=== PATIENT | female | born 1950 | race Caucasian/White ===

== ENCOUNTER → 2017-09-19 | Outpatient (CLI) | payer MEDICARE ==
--- NOTE | 2017-09-19 14:17 | MM ---
Reason for exam: screening (asymptomatic). Last mammogram was performed 1 year and 2 months ago. History: Patient is postmenopausal. Family history of premenopausal breast cancer in cousin at age 50 and premenopausal breast cancer in sister at age 52. Benign excisional biopsy of the left breast, October 06, 2005. Benign excisional biopsy of the right breast, 1992. Benign excisional biopsy of the left breast, 1979. Took hormonal contraceptives for 10 years beginning at age 18. Took estrogen for 13 years beginning at age 39. Took progesterone for 13 years beginning at age 39. Physical Findings: A clinical breast exam by your physician is recommended on an annual basis and results should be correlated with mammographic findings. MG 3D Screening Mammo W/Cad Bilateral CC and MLO view(s) were taken. Prior study comparison: August 02, 2016, bilateral MG 3d screening mammo w/cad. November 11, 2014, bilateral MG screening mammo w CAD. The breast tissue is extremely dense which could obscure a lesion on mammography. Stable benign calcifications. There is no discrete abnormality. No significant changes when compared with prior studies. ASSESSMENT: Benign, BI-RAD 2 RECOMMENDATION: Routine screening mammogram of both breasts in 1 year.
== END | disposition home or self-care (01) ==
LOC: RADMAMWWP 08:55
PROVIDERS: ATTEND Family Medicine
DX: Z12.31 Encounter for screening mammogram for malignant neoplasm of breast (principal)
CPT/HCPCS: 77063; 77067

== ENCOUNTER 2018-06-23 10:30 | Emergency (ER) | payer MEDICARE ==
[2018-06-23 11:05] VITALS: TEMP 98.1
[2018-06-23] MEDS ORDERED: SODIUM CHLORIDE 0.9% 1,000 ML IV STA ×2 (11:37)
[2018-06-23] MEDS ORDERED: MORPHINE SULFATE 2 MG/ML SYRINGE IVP STA (11:37)
--- NOTE | 2018-06-23 11:40 | ED ---
Abdominal Pain HPI - General Source: patient, RN notes reviewed, old records reviewed Mode of arrival: ambulatory Limitations: no limitations <Jessica Person - Last Filed: 06/23/18 16:00> <Mook Lozano - Last Filed: 06/23/18 22:22> - General Chief Complaint: Abdominal Pain Stated Complaint: SOB, cough Time Seen by Provider: 06/23/18 11:21 - History of Present Illness Initial Comments: 68-year-old female presents emergency department today with chief complaint of right upper quadrant pain radiating towards her back. Patient states that she did have some episodes of shortness of breath. She denies any specific chest pain at this time. She reports that the pain radiates around the mid back. Patient states that she has had these symptoms for the past 2 days. She states that this time she has 0 pain. The pain is worse with taking a deep breath. She denies any nausea or vomiting. (Jessica Person) - Related Data Home Medications Medication Instructions Recorded Confirmed Cholecalciferol [Vitamin D3] 5,000 unit PO DAILY 06/23/18 06/23/18 Levothyroxine Sodium [Synthroid] 50 mcg PO DAILY 06/23/18 06/23/18 Allergies Allergy/AdvReac Type Severity Reaction Status Date / Time ANTIHISTAMINE AdvReac Unknown Uncoded 06/23/18 11:01 Review of Systems ROS Other: All systems not noted in ROS Statement are negative. <Jessica Person - Last Filed: 06/23/18 16:00> ROS Other: All systems not noted in ROS Statement are negative. <Mook Lozano - Last Filed: 06/23/18 22:22> ROS Statement: Those systems with pertinent positive or pertinent negative responses have been documented in the HPI. Past Medical History Past Medical History: GERD/Reflux, Osteoarthritis (OA) Additional Past Medical History / Comment(s): OA OF AARON THUMBS History of Any Multi-Drug Resistant Organisms: None Reported Additional Past Surgical History / Comment(s): HEMMOROIDECTOMY, BENIGN CYST REMOVED FROM BREAST Past Anesthesia/Blood Transfusion Reactions: No Reported Reaction Past Psychological History: No Psychological Hx Reported Smoking Status: Current every day smoker Past Alcohol Use History: Occasional Past Drug Use History: None Reported - Past Family History Mother Family Medical History: Cancer Additional Family Medical History / Comment(s): VULVA Sister(s) Family Medical History: Cancer Additional Family Medical History / Comment(s): BREAST Brother(s) Family Medical History: Cancer Additional Family Medical History / Comment(s): STOMACH <Jessica Person - Last Filed: 06/23/18 16:00> General Exam Limitations: no limitations General appearance: alert, in no apparent distress Head exam: Present: atraumatic, normocephalic, normal inspection Eye exam: Present: normal appearance, PERRL, EOMI. Absent: scleral icterus, conjunctival injection, periorbital swelling ENT exam: Present: normal exam Neck exam: Present: normal inspection. Absent: tenderness, meningismus, lymphadenopathy Respiratory exam: Present: normal lung sounds bilaterally. Absent: respiratory distress, wheezes, rales, rhonchi, stridor Cardiovascular Exam: Present: regular rate, normal rhythm, normal heart sounds. Absent: systolic murmur, diastolic murmur, rubs, gallop, clicks GI/Abdominal exam: Present: soft, tenderness (Tenderness Patient in the right upper quadrant.), normal bowel sounds. Absent: distended, guarding, rebound, rigid Extremities exam: Present: normal inspection, full ROM, normal capillary refill , other (Patient has normal dorsalis pedis and posterior tibial pulse. 2+. Lower extremity's are warm.). Absent: tenderness, pedal edema, joint swelling, calf tenderness Back exam: Present: normal inspection Neurological exam: Present: alert, oriented X3, CN II-XII intact Psychiatric exam: Present: normal affect, normal mood Skin exam: Present: warm, dry, intact, normal color. Absent: rash <Jessica Person - Last Filed: 06/23/18 16:00> <Mook Lozano - Last Filed: 06/23/18 22:22> - General Exam Comments Initial Comments: 68-year-old female. Alert and oriented 3. Patient appears in no acute distress. (Jessica Person) Vital Signs 06/23/18 06/23/18 06/23/18 11:01 11:22 12:30 Temperature 98.1 F Pulse Rate 64 58 L Respiratory 18 22 14 Rate Blood Pressure 140/80 135/84 O2 Sat by Pulse 97 96 Oximetry 06/23/18 06/23/18 06/23/18 14:00 15:00 15:30 Temperature Pulse Rate 63 72 60 Respiratory 16 16 14 Rate Blood Pressure 128/76 109/62 126/70 O2 Sat by Pulse 93 L 94 L 92 L Oximetry 06/23/18 06/23/18 16:00 16:30 Temperature Pulse Rate 65 71 Respiratory 16 14 Rate Blood Pressure 139/83 121/77 O2 Sat by Pulse 92 L 87 L Oximetry Medical Decision Making - Lab Data Result diagrams: 06/23/18 12:00 06/23/18 12:00 - Radiology Data Radiology results: report reviewed <Jessica Person - Last Filed: 06/23/18 16:00> - Lab Data Result diagrams: 06/23/18 12:00 06/23/18 12:00 <Mook Lozano - Last Filed: 06/23/18 22:22> - Medical Decision Making Patient is a 68-year-old female presents emergency department today with chief complaint of mid back pain and right upper quadrant pain. Patient reports no other exam is revealing symptoms, fevers chills nausea or vomiting. Initially is concerned for gallbladder-related Patient described pain. He did complete lab work, EKG and right upper quadrant ultrasound. Patient's labwork was reviewed and unremarkable. Normal hemoglobin liver enzymes coags. She is a normal troponin. When I reevaluated the Patient she stated complaining of some back pain. Not reproducible to palpation. At this time I added a d-dimer. This fluid came back markedly elevated 2.26. We proceeded with a computed tomography scan of the chest for PE. Patient was found to have a mid thoracic dissection. No evidence of PE. The son I contacted Dr. Aranda get up. She has normal pulses in lower extremities, complains of minor pain in the back at this time. Heart rate was 75 bpm, blood pressure is 130/92. Did start the Patient on Esmolol titration. Patient requests transfer to [facility]. (Jessica Person) Patient patient evaluated at approximately 1600. CT evidence of anterior aortic dissection. This is distal thoracic, type B dissection. Patient has complained of pain for 2-3 days with some mild dyspnea. Vital signs are stable , there was no concern for dissection on initial presentation his blood pressure was normal, and patient was otherwise well-appearing. This was picked up incidentally on PE CT angiogram study. This was obtained secondary to mild dyspnea and elevated d-dimer. This study is suboptimal for evaluation of the aorta however there is evidence of filling defect in the anterior aortic wall. This does correspond with the patient's pain complaint. She is started on esmolol for both heart rate and blood pressure reduction. Case is discussed with [facility] regarding transfer. ER physician discussed case with cardiothoracic surgery who does accept the patient. Accepting physician is Dr. Whiting. Patient is pain-free at the time of reevaluation, blood pressure and heart rate is improving. She has distal pulses. Lactic is 1.2 which is normal. (Mook Lozano) - Lab Data Lab Results 06/23/18 06/23/18 06/23/18 Range/Units 12:00 12:00 12:00 WBC 4.3 (3.8-10.6) k/uL RBC 4.15 (3.80-5.40) m/uL Hgb 13.0 (11.4-16.0) gm/dL Hct 39.0 (34.0-46.0) % MCV 94.1 (80.0-100.0) fL MCH 31.5 (25.0-35.0) pg MCHC 33.4 (31.0-37.0) g/dL RDW 12.8 (11.5-15.5) % Plt Count 224 (150-450) k/uL Neutrophils % 57 % Lymphocytes % 33 % Monocytes % 6 % Eosinophils % 2 % Basophils % 0 % Neutrophils # 2.4 (1.3-7.7) k/uL Lymphocytes # 1.4 (1.0-4.8) k/uL Monocytes # 0.2 (0-1.0) k/uL Eosinophils # 0.1 (0-0.7) k/uL Basophils # 0.0 (0-0.2) k/uL PT (9.0-12.0) sec INR (<1.2) APTT (22.0-30.0) sec D-Dimer (<0.60) mg/L FEU Sodium 142 (137-145) mmol/L Potassium 4.3 (3.5-5.1) mmol/L Chloride 108 H (98-107) mmol/L Carbon Dioxide 26 (22-30) mmol/L Anion Gap 8 mmol/L BUN 19 H (7-17) mg/dL Creatinine 0.55 (0.52-1.04) mg/dL Est GFR (CKD-EPI)AfAm >90 (>60 ml/min/1.73 sqM) Est GFR (CKD-EPI)NonAf >90 (>60 ml/min/1.73 sqM) Glucose 83 (74-99) mg/dL Plasma Lactic Acid Eusebio (0.7-2.0) mmol/L Calcium 9.7 (8.4-10.2) mg/dL Total Bilirubin 0.4 (0.2-1.3) mg/dL AST 17 (14-36) U/L ALT 23 (9-52) U/L Alkaline Phosphatase 61 (38-126) U/L Troponin I (0.000-0.034) ng/mL Total Protein 6.4 (6.3-8.2) g/dL Albumin 3.8 (3.5-5.0) g/dL Amylase 46 (30-110) U/L Lipase 77 (23-300) U/L Urine Color Yellow Urine Appearance Clear (Clear) Urine pH 6.0 (5.0-8.0) Ur Specific [place] 1.012 (1.001-1.035) Urine Protein Negative (Negative) Urine Glucose (UA) Negative (Negative) Urine Ketones Negative (Negative) Urine Blood Negative (Negative) Urine Nitrite Negative (Negative) Urine Bilirubin Negative (Negative) Urine Urobilinogen <2.0 (<2.0) mg/dL Ur Leukocyte Esterase Moderate H (Negative) Urine RBC 1 (0-5) /hpf Urine WBC 6 H (0-5) /hpf Ur Squamous Epith Cells <1 (0-4) /hpf Urine Mucus Rare H (None) /hpf 06/23/18 06/23/18 06/23/18 Range/Units 12:00 12:00 12:00 WBC (3.8-10.6) k/uL RBC (3.80-5.40) m/uL Hgb (11.4-16.0) gm/dL Hct (34.0-46.0) % MCV (80.0-100.0) fL MCH (25.0-35.0) pg MCHC (31.0-37.0) g/dL RDW (11.5-15.5) % Plt Count (150-450) k/uL Neutrophils % % Lymphocytes % % Monocytes % % Eosinophils % % Basophils % % Neutrophils # (1.3-7.7) k/uL Lymphocytes # (1.0-4.8) k/uL Monocytes # (0-1.0) k/uL Eosinophils # (0-0.7) k/uL Basophils # (0-0.2) k/uL PT 9.7 (9.0-12.0) sec INR 1.0 (<1.2) APTT 20.2 L (22.0-30.0) sec D-Dimer 2.44 H (<0.60) mg/L FEU Sodium (137-145) mmol/L Potassium (3.5-5.1) mmol/L Chloride (98-107) mmol/L Carbon Dioxide (22-30) mmol/L Anion Gap mmol/L BUN (7-17) mg/dL Creatinine (0.52-1.04) mg/dL Est GFR (CKD-EPI)AfAm (>60 ml/min/1.73 sqM) Est GFR (CKD-EPI)NonAf (>60 ml/min/1.73 sqM) Glucose (74-99) mg/dL Plasma Lactic Acid Eusebio (0.7-2.0) mmol/L Calcium (8.4-10.2) mg/dL Total Bilirubin (0.2-1.3) mg/dL AST (14-36) U/L ALT (9-52) U/L Alkaline Phosphatase (38-126) U/L Troponin I <0.012 (0.000-0.034) ng/mL Total Protein (6.3-8.2) g/dL Albumin (3.5-5.0) g/dL Amylase (30-110) U/L Lipase (23-300) U/L Urine Color Urine Appearance (Clear) Urine pH (5.0-8.0) Ur Specific [place] (1.001-1.035) Urine Protein (Negative) Urine Glucose (UA) (Negative) Urine Ketones (Negative) Urine Blood (Negative) Urine Nitrite (Negative) Urine Bilirubin (Negative) Urine Urobilinogen (<2.0) mg/dL Ur Leukocyte Esterase (Negative) Urine RBC (0-5) /hpf Urine WBC (0-5) /hpf Ur Squamous Epith Cells (0-4) /hpf Urine Mucus (None) /hpf 06/23/18 Range/Units 12:00 WBC (3.8-10.6) k/uL RBC (3.80-5.40) m/uL Hgb (11.4-16.0) gm/dL Hct (34.0-46.0) % MCV (80.0-100.0) fL MCH (25.0-35.0) pg MCHC (31.0-37.0) g/dL RDW (11.5-15.5) % Plt Count (150-450) k/uL Neutrophils % % Lymphocytes % % Monocytes % % Eosinophils % % Basophils % % Neutrophils # (1.3-7.7) k/uL Lymphocytes # (1.0-4.8) k/uL Monocytes # (0-1.0) k/uL Eosinophils # (0-0.7) k/uL Basophils # (0-0.2) k/uL PT (9.0-12.0) sec INR (<1.2) APTT (22.0-30.0) sec D-Dimer (<0.60) mg/L FEU Sodium (137-145) mmol/L Potassium (3.5-5.1) mmol/L Chloride (98-107) mmol/L Carbon Dioxide (22-30) mmol/L Anion Gap mmol/L BUN (7-17) mg/dL Creatinine (0.52-1.04) mg/dL Est GFR (CKD-EPI)AfAm (>60 ml/min/1.73 sqM) Est GFR (CKD-EPI)NonAf (>60 ml/min/1.73 sqM) Glucose (74-99) mg/dL Plasma Lactic Acid Eusebio 1.2 (0.7-2.0) mmol/L Calcium (8.4-10.2) mg/dL Total Bilirubin (0.2-1.3) mg/dL AST (14-36) U/L ALT (9-52) U/L Alkaline Phosphatase (38-126) U/L Troponin I (0.000-0.034) ng/mL Total Protein (6.3-8.2) g/dL Albumin (3.5-5.0) g/dL Amylase (30-110) U/L Lipase (23-300) U/L Urine Color Urine Appearance (Clear) Urine pH (5.0-8.0) Ur Specific [place] (1.001-1.035) Urine Protein (Negative) Urine Glucose (UA) (Negative) Urine Ketones (Negative) Urine Blood (Negative) Urine Nitrite (Negative) Urine Bilirubin (Negative) Urine Urobilinogen (<2.0) mg/dL Ur Leukocyte Esterase (Negative) Urine RBC (0-5) /hpf Urine WBC (0-5) /hpf Ur Squamous Epith Cells (0-4) /hpf Urine Mucus (None) /hpf 06/23/18 12:05 EKG performed at 1204 shows sinus bradycardia, left axis deviation. Our circular pattern in V1 just right jugular conduction delays. No jugular to 57 beats were minute. WA interval is 178 ms. QRS duration 92 ms. QT QTc is 4:30/ 442 ms. (Jessica Person) - Radiology Data Normal right upper quadrant ultrasound. Chest x-ray shows No active intrathoracic disease noted. No evidence of pulmonary embolism. There is evidence of a short segment of dissection of the lower thoracic aorta. Evidence of pulmonary emphysema. Mild pulmonary fibrosis. There is a 10 mm area of incomplete filling in the anterior aspect of the lower thoracic aorta consistent with a focal dissection. Extends from T12 to T10. No evidence of aneurysm. (Jessica Person) Disposition Is patient prescribed a controlled substance at d/c from ED?: No Time of Disposition: 15:59 - Out of Hospital Transfer - Req. Specs Out of Hospital Transfer - Requested Specifics: Other Emergency Center ([facility]) <Jessica Person - Last Filed: 06/23/18 16:00> <Mook Lozano - Last Filed: 06/23/18 22:22> Clinical Impression: Dissection of aorta, thoracic Disposition: DC/TRNS INTERMEDIATE CARE FAC Condition: Stable Referrals: Kathleen Sanders DO [Primary Care Provider] - 1-2 days
--- NOTE | 2018-06-23 12:24 | XR ---
EXAMINATION TYPE: XR chest 2V DATE OF EXAM: 06/23/2018 HISTORY: abdominal pain. REFERENCE: NONE. FINDINGS: The lungs are clear. Pleural spaces are clear. The heart is not enlarged. IMPRESSION: NO ACTIVE INTRATHORACIC DISEASE.
[2018-06-23 12:26] LABS: Basophils % (A) 0 %; Eosinophils # (A) 0.1 k/uL (0-0.7); Eosinophils % (A) 2 %; Lymphocytes # (A) 1.4 k/uL (1.0-4.8); Lymphocytes % (A) 33 %; MCH 31.5 pg (25.0-35.0); MCHC 33.4 g/dL (31.0-37.0); MCV 94.1 fL (80.0-100.0); Mean Platelet Volume 7.5; Monocytes # (A) 0.2 k/uL (0-1.0); Monocytes % (A) 6 %; Neutrophils # (A) 2.4 k/uL (1.3-7.7); Neutrophils % (A) 57 %; Platelet Count 224 k/uL (150-450); RBC 4.15 m/uL (3.80-5.40); RDW 12.8 % (11.5-15.5); WBC 4.3 k/uL (3.8-10.6)
[2018-06-23 12:33] LABS: Appearance,Urine Clear (Clear); Bilirubin,Urine Negative (Negative); Blood,Urine Negative (Negative); Color,Urine Yellow; Glucose,Urine (UA) Negative (Negative); Ketones,Urine Negative (Negative); Leukocyte Esterase,Urine Moderate (Negative); Mucus,Urine Rare /hpf; Nitrite,Urine Negative (Negative); Protein,Urine Negative (Negative); RBC,Urine 1 /hpf (0-5); Specific Gravity,Urine 1.012 (1.001-1.035); Squamous Epithelial Cell,Urine <1 /hpf (0-4); Urobilinogen,Urine <2.0 mg/dL (<2.0); WBC,Urine 6 /hpf (0-5)
[2018-06-23 12:35] LABS: ALT 23 U/L (9-52); AST 17 U/L (14-36); Albumin 3.8 g/dL (3.5-5.0); Alkaline Phosphatase 61 U/L (38-126); Amylase 46 U/L (30-110); Anion Gap 8 mmol/L; Blood Urea Nitrogen 19 mg/dL (7-17); Calcium 9.7 mg/dL (8.4-10.2); Carbon Dioxide 26 mmol/L (22-30); Chloride 108 mmol/L (98-107); Glucose 83 mg/dL (74-99); Lipase 77 U/L (23-300); Potassium 4.3 mmol/L (3.5-5.1); Sodium 142 mmol/L (137-145); Total Bilirubin 0.4 mg/dL (0.2-1.3); Total Protein 6.4 g/dL (6.3-8.2)
[2018-06-23 12:53] LABS: Prothrombin Time 9.7 sec (9.0-12.0)
[2018-06-23 12:54] LABS: Partial Thromboplastin Time 20.2 sec (22.0-30.0)
--- NOTE | 2018-06-23 13:10 | US ---
EXAMINATION TYPE: US gallbladder DATE OF EXAM: 06/23/2018 COMPARISON: NONE CLINICAL HISTORY: Pain. EXAM MEASUREMENTS: Liver Length: 10.8 cm Gallbladder Wall: 0.1 cm CBD: 0.3 cm Right Kidney: 9.3 x 3.6 x 4.8 cm Pancreas: somewhat obscured by bowel gas, portions visualized wnl Liver: wnl Gallbladder: wnl Evidence for sonographic Salcido's sign: no CBD: wnl Right Kidney: No hydronephrosis or masses seen Limited views of the pancreas are unremarkable. The liver is normal in size without evidence for biliary dilatation. The gallbladder is unremarkable. The gallbladder wall measures 1 mm. This common hepatic duct measure s 3 mm. There is no sonographic Salcido's sign. The right kidney is unremarkable. IMPRESSION: NORMAL RIGHT UPPER QUADRANT ULTRASOUND.
--- NOTE | 2018-06-23 15:20 | CT ---
EXAMINATION TYPE: CT chest angio for PE DATE OF EXAM: 06/23/2018 COMPARISON: None HISTORY: SOB, cough, elevated d-dimer CT DLP: 220.1 mGycm Automated exposure control for dose reduction was used. CONTRAST: CT Chest for pulmonary embolism performed with with IV Contrast, patient injected with 80 mL of Isovu e 370. FINDINGS: There are 3-D post processed images. There is pulmonary emphysema. There is a 10 mm area of incomplete filling of the anterior aspect of t he lower thoracic aorta consistent with a focal dissection. This extends from the level of T12-T10. T here is no evidence of aneurysm. There is normal contrast opacification of the pulmonary arteries. I see no filling defect. There is no evidence of a pulmonary mass. There is no pleural effusion. There is linear density at the lung bases consistent with scarring and subsegmental atelectasis. IMPRESSION: No evidence of pulmonary embolism. There is evidence of a short segment of dissection of the lower th oracic aorta. Pulmonary emphysema. Mild pulmonary fibrosis.
[2018-06-23] MEDS ORDERED: ESMOLOL IN SODIUM CHLORIDE PMX 2.5 GM in SALINE 1 250ML.BAG IV ONE (15:46)
[2018-06-23 16:55] VITALS: BP 121/77; PULSE 71; RESP 14
== END 2018-06-23 16:55 ==
LOC: EC 10:30
DX: I71.01 Dissection of thoracic aorta (principal); J43.9 Emphysema, unspecified; J84.10 Pulmonary fibrosis, unspecified; R00.1 Bradycardia, unspecified; R79.1 Abnormal coagulation profile; F17.200 Nicotine dependence, unspecified, uncomplicated; Z88.8 Allergy status to other drugs, medicaments and biological substances; Z79.899 Other long term (current) drug therapy; Z80.0 Family history of malignant neoplasm of digestive organs
CPT/HCPCS: 36415; 93005; 85379; 80053; 82150; 83605; 83690; 84484; 85025; 85610; 85730; 81001; 87040; 71046; 76705; 71275; 99285; 96365; 96375; 96361 ×4; J2270; Q9967

== ENCOUNTER 2019-04-28 18:37 | Emergency (ER) | payer MEDICARE ==
[2019-04-28 19:03] VITALS: RESP 18; TEMP 98.3
[2019-04-28] MEDS ORDERED: SODIUM CHLORIDE 0.9% 500 ML 500 ML IV STA (19:14)
--- NOTE | 2019-04-28 19:18 | ED ---
General Adult HPI - General Chief complaint: Chest Pain Stated complaint: chest & back pain Time Seen by Provider: 04/28/19 19:06 Source: patient Mode of arrival: wheelchair Limitations: no limitations - History of Present Illness Initial comments: 69-year-old female patient with past medical history significant for GERD and arthritis presents to the emergency department today for evaluation of intermittent back pain and right posterior shoulder pain for the last 3 weeks. Patient states that she's been having pain to the substernal chest and just be low the right shoulder blade on the right side on and off for the last 3 weeks. She denies any exacerbating or relieving factors. States she can be at rest or during activity and the pain will come on. She states she does feel short of breath at times. She denies any cough or hemoptysis. Denies any nausea or vomiting. States that she has been having some right sided abdominal pain as well and exhibited to gaining weight recently. She denies any hematuria, dysuria, urinary frequency, urinary urgency. States that she occasionally has diarrhea but nothing consistent. Denies any fever or chills. Patient denies any recent rash, numbness, tingling, dizziness, weakness, hematuria, dysuria, urinary urgency, urinary frequency, headache, visual changes, or any other complaints. - Related Data Home Medications Medication Instructions Recorded Confirmed Levothyroxine Sodium [Synthroid] 50 mcg PO DAILY 06/23/18 04/28/19 Multivitamins, Thera [Multivitamin 1 tab PO DAILY 04/28/19 04/28/19 (formulary)] Omeprazole 20 mg PO DAILY 04/28/19 04/28/19 Allergies Allergy/AdvReac Type Severity Reaction Status Date / Time ANTIHISTAMINE AdvReac anxiety Uncoded 04/28/19 19:12 Review of Systems ROS Statement: Those systems with pertinent positive or pertinent negative responses have been documented in the HPI. ROS Other: All systems not noted in ROS Statement are negative. Past Medical History Past Medical History: GERD/Reflux, Osteoarthritis (OA) Additional Past Medical History / Comment(s): OA OF AARON THUMBS History of Any Multi-Drug Resistant Organisms: None Reported Additional Past Surgical History / Comment(s): HEMMOROIDECTOMY, BENIGN CYST REMOVED FROM BREAST Past Anesthesia/Blood Transfusion Reactions: No Reported Reaction Past Psychological History: No Psychological Hx Reported Smoking Status: Former smoker Past Alcohol Use History: Occasional Past Drug Use History: None Reported - Past Family History Mother Family Medical History: Cancer Additional Family Medical History / Comment(s): VULVA Sister(s) Family Medical History: Cancer Additional Family Medical History / Comment(s): BREAST Brother(s) Family Medical History: Cancer Additional Family Medical History / Comment(s): STOMACH General Exam Limitations: no limitations General appearance: alert, in no apparent distress, other (This is a well- developed, well-nourished elderly female patient in no acute distress. Vital signs upon presentation are temperature 98.3F, pulse 73, respirations 18, blood pressure 123/68, pulse ox 91% on room air.) Eye exam: Present: normal appearance, PERRL, EOMI. Absent: scleral icterus, conjunctival injection, periorbital swelling ENT exam: Present: normal exam, normal oropharynx, mucous membranes moist Respiratory exam: Present: normal lung sounds bilaterally. Absent: respiratory distress, wheezes, rales, rhonchi, stridor Cardiovascular Exam: Present: regular rate, normal rhythm, normal heart sounds. Absent: systolic murmur, diastolic murmur, rubs, gallop, clicks GI/Abdominal exam: Present: soft, tenderness (Midepigastric tenderness), normal bowel sounds. Absent: distended, guarding, rebound, rigid Neurological exam: Present: alert, oriented X3, CN II-XII intact Psychiatric exam: Present: normal affect, normal mood Skin exam: Present: warm, dry, intact, normal color. Absent: rash Course Vital Signs 04/28/19 04/28/19 04/28/19 19:00 19:31 20:00 Temperature 98.3 F Pulse Rate 73 68 73 Respiratory 18 Rate Blood Pressure 123/68 138/85 O2 Sat by Pulse 91 L 73 L 95 Oximetry 04/28/19 04/28/19 04/28/19 20:30 21:00 21:30 Temperature Pulse Rate 75 78 76 Respiratory Rate Blood Pressure 117/69 114/81 112/74 O2 Sat by Pulse 90 L 94 L 99 Oximetry 04/28/19 22:00 Temperature Pulse Rate 80 Respiratory Rate Blood Pressure 136/88 O2 Sat by Pulse 91 L Oximetry EKG Findings - EKG Comments: EKG Findings:: EKG obtained in 1917 shows normal sinus rhythm with a ventricular rate of 69, NC interval 174, QRS duration 90, QT 402, QTc 4:30. No evidence of ST elevation or depression. Medical Decision Making - Medical Decision Making 69-year-old female patient presented to the emergency department today for evaluation of lower substernal chest pain with right subscapular pain inter mittent over the last 3 weeks. Physical examination did reveal midepigastric tenderness. Labs reviewed and were unremarkable. Ultrasound of the abdomen was obtained and showed no abnormalities. Chest x-ray showed no acute cardiopulmonary process. 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 Case was discussed with the on-call vascular surgeon Dr. Jama who recommends outpatient follow-up. I did discuss these findings and results with the patient. Did recommend observation admission for chest pain and cardiology evaluation. Patient requested discharge due to insurance reasons. She does agree to follow-up with both cardiology and vascular surgeon as soon as possible. She is instructed to follow-up with her primary care physician for recheck in 1-2 days. Return parameters discussed in detail. She verbalizes understanding and agrees with this plan. - Lab Data Result diagrams: 04/28/19 19:25 04/28/19 19:25 Lab Results 04/28/19 04/28/19 04/28/19 Range/Units 19:25 19:25 19:25 WBC 5.1 (3.8-10.6) k/uL RBC 4.17 (3.80-5.40) m/uL Hgb 13.0 (11.4-16.0) gm/dL Hct 38.2 (34.0-46.0) % MCV 91.5 (80.0-100.0) fL MCH 31.0 (25.0-35.0) pg MCHC 33.9 (31.0-37.0) g/dL RDW 13.7 (11.5-15.5) % Plt Count 217 (150-450) k/uL Neutrophils % 54 % Lymphocytes % 32 % Monocytes % 7 % Eosinophils % 3 % Basophils % 1 % Neutrophils # 2.8 (1.3-7.7) k/uL Lymphocytes # 1.6 (1.0-4.8) k/uL Monocytes # 0.4 (0-1.0) k/uL Eosinophils # 0.2 (0-0.7) k/uL Basophils # 0.0 (0-0.2) k/uL PT 9.7 (9.0-12.0) sec INR 0.9 (<1.2) APTT 23.4 (22.0-30.0) sec Sodium 141 (137-145) mmol/L Potassium 3.9 (3.5-5.1) mmol/L Chloride 106 (98-107) mmol/L Carbon Dioxide 27 (22-30) mmol/L Anion Gap 8 mmol/L BUN 19 H (7-17) mg/dL Creatinine 0.64 (0.52-1.04) mg/dL Est GFR (CKD-EPI)AfAm >90 (>60 ml/min/1.73 sqM) Est GFR (CKD-EPI)NonAf >90 (>60 ml/min/1.73 sqM) Glucose 109 H (74-99) mg/dL Calcium 9.2 (8.4-10.2) mg/dL Magnesium 2.2 (1.6-2.3) mg/dL Total Bilirubin 0.2 (0.2-1.3) mg/dL AST 24 (14-36) U/L ALT 16 (9-52) U/L Alkaline Phosphatase 69 (38-126) U/L Troponin I (0.000-0.034) ng/mL Total Protein 6.5 (6.3-8.2) g/dL Albumin 4.0 (3.5-5.0) g/dL Lipase 114 (23-300) U/L Urine Color Urine Appearance (Clear) Urine pH (5.0-8.0) Ur Specific [place] (1.001-1.035) Urine Protein (Negative) Urine Glucose (UA) (Negative) Urine Ketones (Negative) Urine Blood (Negative) Urine Nitrite (Negative) Urine Bilirubin (Negative) Urine Urobilinogen (<2.0) mg/dL Ur Leukocyte Esterase (Negative) Urine RBC (0-5) /hpf Urine WBC (0-5) /hpf Ur Squamous Epith Cells (0-4) /hpf Urine Mucus (None) /hpf 04/28/19 04/28/19 Range/Units 19:25 19:25 WBC (3.8-10.6) k/uL RBC (3.80-5.40) m/uL Hgb (11.4-16.0) gm/dL Hct (34.0-46.0) % MCV (80.0-100.0) fL MCH (25.0-35.0) pg MCHC (31.0-37.0) g/dL RDW (11.5-15.5) % Plt Count (150-450) k/uL Neutrophils % % Lymphocytes % % Monocytes % % Eosinophils % % Basophils % % Neutrophils # (1.3-7.7) k/uL Lymphocytes # (1.0-4.8) k/uL Monocytes # (0-1.0) k/uL Eosinophils # (0-0.7) k/uL Basophils # (0-0.2) k/uL PT (9.0-12.0) sec INR (<1.2) APTT (22.0-30.0) sec Sodium (137-145) mmol/L Potassium (3.5-5.1) mmol/L Chloride (98-107) mmol/L Carbon Dioxide (22-30) mmol/L Anion Gap mmol/L BUN (7-17) mg/dL Creatinine (0.52-1.04) mg/dL Est GFR (CKD-EPI)AfAm (>60 ml/min/1.73 sqM) Est GFR (CKD-EPI)NonAf (>60 ml/min/1.73 sqM) Glucose (74-99) mg/dL Calcium (8.4-10.2) mg/dL Magnesium (1.6-2.3) mg/dL Total Bilirubin (0.2-1.3) mg/dL AST (14-36) U/L ALT (9-52) U/L Alkaline Phosphatase (38-126) U/L Troponin I <0.012 (0.000-0.034) ng/mL Total Protein (6.3-8.2) g/dL Albumin (3.5-5.0) g/dL Lipase (23-300) U/L Urine Color Yellow Urine Appearance Clear (Clear) Urine pH 6.0 (5.0-8.0) Ur Specific [place] 1.016 (1.001-1.035) Urine Protein Negative (Negative) Urine Glucose (UA) Negative (Negative) Urine Ketones Negative (Negative) Urine Blood Negative (Negative) Urine Nitrite Negative (Negative) Urine Bilirubin Negative (Negative) Urine Urobilinogen <2.0 (<2.0) mg/dL Ur Leukocyte Esterase Small H (Negative) Urine RBC 1 (0-5) /hpf Urine WBC 3 (0-5) /hpf Ur Squamous Epith Cells 2 (0-4) /hpf Urine Mucus Occasional H (None) /hpf - Radiology Data Radiology results: report reviewed, image reviewed Two-view x-ray of the chest is obtained. Report was reviewed in its entirety. Impression by Dr. Jeong shows no active cardiopulmonary disease. No change. Ultrasound of the right upper quadrant abdomen was obtained. Report was reviewed in its entirety. Impression by Dr. Jeong shows negative exam. No gallstones or dilated ducts. Normal pancreas. CT of the thoracic, abdominal, pelvic aorta was obtained. Report was reviewed in its entirety. Impression by Dr. Gary shows mild aneurysm of the upper abdominal aorta the diaphragm with mild thrombus. No evidence of dissection. No evidence of hemodynamic stenosis. No evidence of pulmonary embolism. Disposition Clinical Impression: Chest pain, Abdominal aortic aneurysm Disposition: HOME SELF-CARE Condition: Good Instructions (If sedation given, give patient instructions): Chest Pain (ED), Nonruptured Abdominal Aortic Aneurysm (DC) Additional Instructions: Follow-up with cardiology and vascular surgery for further evaluation as soon as possible. Follow-up with your primary care physician for recheck in 1-2 days. Return to the emergency department immediately for any new, worsening, or concerning symptoms. Is patient prescribed a controlled substance at d/c from ED?: No Referrals: Kathleen Sanders DO [Primary Care Provider] - 1-2 days Ioana Jama DO [STAFF PHYSICIAN] - 1-2 days Dilip Arias MD [STAFF PHYSICIAN] - 1-2 days Time of Disposition: 22:27
[2019-04-28 19:40] LABS: Basophils % (A) 1 %; Eosinophils # (A) 0.2 k/uL (0-0.7); Eosinophils % (A) 3 %; HCT 38.2 % (34.0-46.0); Lymphocytes # (A) 1.6 k/uL (1.0-4.8); Lymphocytes % (A) 32 %; MCHC 33.9 g/dL (31.0-37.0); MCV 91.5 fL (80.0-100.0); Mean Platelet Volume 7.5; Monocytes # (A) 0.4 k/uL (0-1.0); Monocytes % (A) 7 %; Neutrophils # (A) 2.8 k/uL (1.3-7.7); Neutrophils % (A) 54 %; Platelet Count 217 k/uL (150-450); RBC 4.17 m/uL (3.80-5.40); RDW 13.7 % (11.5-15.5); WBC 5.1 k/uL (3.8-10.6)
[2019-04-28 19:42] LABS: INR 0.9 (<1.2); Partial Thromboplastin Time 23.4 sec (22.0-30.0); Prothrombin Time 9.7 sec (9.0-12.0)
[2019-04-28 19:43] LABS: ALT 16 U/L (9-52); AST 24 U/L (14-36); African American GFR (CKD) >90 (>60 ml/min/1.73 sqM); Alkaline Phosphatase 69 U/L (38-126); Anion Gap 8 mmol/L; Blood Urea Nitrogen 19 mg/dL (7-17); Calcium 9.2 mg/dL (8.4-10.2); Carbon Dioxide 27 mmol/L (22-30); Chloride 106 mmol/L (98-107); Glucose 109 mg/dL (74-99); Magnesium 2.2 mg/dL (1.6-2.3); Non-African American GFR(CKD) >90 (>60 ml/min/1.73 sqM); Potassium 3.9 mmol/L (3.5-5.1); Sodium 141 mmol/L (137-145); Total Bilirubin 0.2 mg/dL (0.2-1.3); Total Protein 6.5 g/dL (6.3-8.2)
[2019-04-28 19:49] LABS: Appearance,Urine Clear (Clear); Bilirubin,Urine Negative (Negative); Blood,Urine Negative (Negative); Color,Urine Yellow; Glucose,Urine (UA) Negative (Negative); Ketones,Urine Negative (Negative); Leukocyte Esterase,Urine Small (Negative); Mucus,Urine Occasional /hpf; Nitrite,Urine Negative (Negative); Protein,Urine Negative (Negative); RBC,Urine 1 /hpf (0-5); Specific Gravity,Urine 1.016 (1.001-1.035); Squamous Epithelial Cell,Urine 2 /hpf (0-4); Urobilinogen,Urine <2.0 mg/dL (<2.0); WBC,Urine 3 /hpf (0-5)
--- NOTE | 2019-04-28 19:55 | XR ---
EXAMINATION TYPE: XR chest 2V DATE OF EXAM: 04/28/2019 COMPARISON: 06/23/2018 HISTORY: Chest pain TECHNIQUE: Frontal and lateral views of the chest are obtained. FINDINGS: Heart and mediastinum are normal. Lungs are clear of consolidation. There are chest leads. Diaphragm is normal. There is some osteopenia. IMPRESSION: No active cardiopulmonary disease. No change.
--- NOTE | 2019-04-28 20:36 | US ---
EXAMINATION TYPE: US abdomen limited DATE OF EXAM: 04/28/2019 COMPARISON: US CLINICAL HISTORY: Pain. RUQ pain x 3 weeks intermittently. EXAM MEASUREMENTS: Liver Length: 11.1 cm Gallbladder Wall: 0.22 cm CBD: 0.57 cm Right Kidney: 9.9 x 5.3 x 4.7 cm *Limited due to gas, patient not NPO. Pancreas: appears wnl Liver: appears wnl Gallbladder: Internal echoes seen, suggestive of artifact. Evidence for sonographic Salcido's sign: no CBD: measures upper limits of normal. Right Kidney: No hydronephrosis or masses seen IMPRESSION: Negative exam. No gallstones or dilated ducts. Normal pancreas.
--- NOTE | 2019-04-28 21:52 | CT ---
EXAMINATION TYPE: CT angio thor/abd pel aorta DATE OF EXAM: 04/28/2019 COMPARISON: None HISTORY: Chest and back pain. CT DLP: 1408.2 mGycm. Automated Exposure Control for Dose Reduction was Utilized. There are 3-D post processed images. Multiple axial sections were obtained from the thoracic inlet t o the floor the pelvis without and with IV contrast. CONTRAST: CT scan of the thorax, abdomen and pelvis is performed without and with IV Contrast, patient injected with 100ml mL of Isovue 370. FINDINGS: There is normal branching pattern of the great vessels on the aortic arch. Thoracic aorta is intact. There is no evidence of aneurysm or dissection. The ascending aorta measures 3.4 cm. There are no yomaira ling defects in the pulmonary arteries. There is no mediastinal adenopathy. There are no hilar masses . Heart size is fairly normal. There is aneurysm of the upper abdominal aorta at the diaphragm. There is thrombus on the right later al wall. Aorta measures up to 3.3 cm. There is patency of the celiac artery and superior mesenteric artery. There is patency of the renal a rteries. There is patency of the iliac and femoral arteries. There is no evidence of hemodynamic sten osis. There is no evidence of abdominal aortic dissection. Liver shows no focal defect. Spleen appears normal. Stomach pancreas gallbladder appear normal. Kidne ys have normal size and contour. There is no hydronephrosis. There is no mesenteric edema. Bladder di stends smoothly. There is no evidence of pelvic mass. Appendix appears normal. Thoracic and lumbar spine appear intact. Bony thorax is intact. Bony pelvis is intact. There is sacra l cyst at S2 level. IMPRESSION: There is a mild aneurysm of the upper abdominal aorta at the diaphragm with mild thrombus. No evidenc e of dissection. No evidence of hemodynamic stenosis. No evidence of pulmonary embolism.
[2019-04-28 22:31] VITALS: BP 136/88; PULSE 80
== END 2019-04-28 22:36 | disposition home or self-care (01) ==
LOC: EC 18:37
DX: I71.4 Abdominal aortic aneurysm, without rupture (principal); R07.2 Precordial pain; I74.09 Other arterial embolism and thrombosis of abdominal aorta; K21.9 Gastro-esophageal reflux disease without esophagitis; Z87.891 Personal history of nicotine dependence; Z79.890 Hormone replacement therapy; Z79.899 Other long term (current) drug therapy; Z88.8 Allergy status to other drugs, medicaments and biological substances
CPT/HCPCS: 36415; 93005; 80053; 83690; 83735; 84484; 85025; 85610; 85730; 81001; 71046; 76705; 71275; 74174; 99285; 96360; Q9967

== ENCOUNTER → 2022-07-13 | Outpatient (CLI) | payer MEDICARE ==
--- NOTE | 2022-07-14 07:58 | MM ---
Reason for Exam: Screening (asymptomatic). Last mammogram was performed 4 year(s) and 10 month(s) ago. Patient History: Menarche at age 11. First Full-Term at age 17. Postmenopausal. Estrogen for 13 years from age 39 until age 53. Progesterone for 13 years from age 39 until age 53. Hormonal Contraceptives for 10 years from age 18 until age 29. 10/06/2005, Benign Excisional Biopsy on the left side. 1992, Benign Excisional Biopsy on the right side. 1979, Benign Excisional Biopsy on the left side. Maternal cousin had breast cancer, age 50. Sister had breast cancer, age 52. Risk Values: Tequila 5 year model risk: 4.9%. NCI Lifetime model risk: 11.7%. Prior Study Comparison: 11/11/2014 Bilateral Screening Mammogram, [facility]. 08/02/2016 Bilateral Screening Mammogram, [facility]. 09/19/2017 Bilateral Screening Mammogram, [facility]. Tissue Density: The breast tissue is heterogeneously dense. This may lower the sensitivity of mammography. Findings: Analyzed By CAD. Bilateral benign-appearing calcifications. There is no suspicious group of microcalcifications or new suspicious mass in either breast. Overall Assessment: Benign, BI-RAD 2 Management: Screening Mammogram of both breasts in 1 year. A clinical breast exam by your physician is recommended on an annual basis and results should be correlated with mammographic findings. [facility] will attempt to contact patient to return for supplemental views and ultrasound if indicated. Electronically signed and approved by: Mook Hunter DO
== END | disposition home or self-care (01) ==
LOC: RADMAMWWP 07:56
PROVIDERS: ATTEND Family Medicine
DX: Z12.31 Encounter for screening mammogram for malignant neoplasm of breast (principal); Z80.3 Family history of malignant neoplasm of breast; Z78.0 Asymptomatic menopausal state
CPT/HCPCS: 77063; 77067

== ENCOUNTER → 2023-07-27 | Outpatient (CLI) | payer MEDICARE ==
--- NOTE | 2023-07-30 08:43 | MM ---
Reason for Exam: Screening (asymptomatic). Last screening mammogram was performed 12 month(s) ago. Patient History: Menarche at age 11. First Full-Term at age 17. Postmenopausal. Estrogen for 13 years from age 39 until age 53. Progesterone for 13 years from age 39 until age 53. Hormonal Contraceptives for 10 years from age 18 until age 29. 10/06/2005, Benign Excisional Biopsy on the left side. 1992, Benign Excisional Biopsy on the right side. 1979, Benign Excisional Biopsy on the left side. Paternal cousin had breast cancer, age 50. Sister had breast cancer, age 52. Risk Values: Tequila 5 year model risk: 4.9%. NCI Lifetime model risk: 11.0%. Prior Study Comparison: 11/11/2014 Bilateral Screening Mammogram, [facility]. 08/02/2016 Bilateral Screening Mammogram, [facility]. 09/19/2017 Bilateral Screening Mammogram, [facility]. 07/13/2022 Bilateral MG 3D screening mammo w/cad, [facility]. Tissue Density: The breast tissue is heterogeneously dense. This may lower the sensitivity of mammography. Findings: Analyzed By CAD. There is no suspicious group of microcalcifications or new suspicious mass in either breast. Overall Assessment: Benign, BI-RAD 2 Management: Screening Mammogram of both breasts in 1 year. . Patient should continue monthly self-breast exams. A clinical breast exam by your physician is recommended on an annual basis. This exam should not preclude additional follow-up of suspicious palpable abnormalities. Note on Tequila scores and lifetime risk: 1. A Tequila score greater than 3% is considered moderate risk. If this is the case, consider specialist referral to assess eligibility for a risk reducing agent. 2. If overall lifetime risk for the development of breast cancer is 20% or higher, the patient may qualify for future screening with alternating mammogram and breast MRI. Electronically signed and approved by: Dylan Palmer M.D. Radiologis
== END | disposition home or self-care (01) ==
LOC: RADMAMWWP 08:30
PROVIDERS: ATTEND Family Medicine
DX: Z12.31 Encounter for screening mammogram for malignant neoplasm of breast (principal); Z78.0 Asymptomatic menopausal state; Z80.3 Family history of malignant neoplasm of breast
CPT/HCPCS: 77063; 77067

== ENCOUNTER → 2024-03-12 | Outpatient (CLI) | payer MEDICARE ==
--- NOTE | 2024-03-12 08:21 | MM ---
Reason for Exam: Clinical finding. Last screening mammogram was performed 8 month(s) ago. Patient History: Menarche at age 11. First Full-Term at age 17. Postmenopausal. Estrogen for 13 years from age 39 until age 53. Progesterone for 13 years from age 39 until age 53. Hormonal Contraceptives for 10 years from age 18 until age 29. 10/06/2005, Benign Excisional Biopsy on the left side. 1992, Benign Excisional Biopsy on the right side. 1979, Benign Excisional Biopsy on the left side. Paternal cousin had breast cancer, age 50. Sister had breast cancer, age 52. Risk Values: Tequila 5 year model risk: 4.9%. NCI Lifetime model risk: 10.4%. Prior Study Comparison: 09/19/2017 Bilateral Screening Mammogram, [facility]. 07/13/2022 Bilateral MG 3D screening mammo w/cad, [facility]. 07/27/2023 Bilateral MG 3D screening mammo w/cad, [facility]. Tissue Density: Left: The breasts are heterogeneously dense, which may obscure small masses. Findings: Analyzed By CAD. Multiple benign lordosis calcifications redemonstrated. Areas of asymmetric density remain unchanged. Palpable marker is placed along the medial aspect of the posterior left breast. No underlying discrete abnormality is seen. Overall Assessment: Incomplete: need additional imaging evaluation, BI-RAD 0 Management: Diagnostic Breast Ultrasound of the left breast. Electronically signed and approved by: Bryan Anderson M.D. Radiologist
--- NOTE | 2024-03-12 08:52 | USB ---
Reason for Exam: Clinical finding. Indicated Problems: Palpable abnormality. Patient History: Menarche at age 11. First Full-Term at age 17. Postmenopausal. Estrogen for 13 years from age 39 until age 53. Progesterone for 13 years from age 39 until age 53. Hormonal Contraceptives for 10 years from age 18 until age 29. 10/06/2005, Benign Excisional Biopsy on the left side. 1992, Benign Excisional Biopsy on the right side. 1979, Benign Excisional Biopsy on the left side. Paternal cousin had breast cancer, age 50. Sister had breast cancer, age 52. Risk Values: Tequila 5 year model risk: 4.9%. NCI Lifetime model risk: 10.4%. Technique: Method: Targeted. Prior Study Comparison: 09/19/2017 Bilateral Screening Mammogram, [facility]. 07/13/2022 Bilateral MG 3D screening mammo w/cad, [facility]. 07/27/2023 Bilateral MG 3D screening mammo w/cad, [facility]. Findings: The area of palpable concern of the left breast, the axilla of the left breast and the retroareolar of the left breast were scanned. Targeted ultrasound at the 9:00 palpable site including scanning of the subareolar region and axilla. At 9:00, 12 cm from the nipple corresponding to the palpable site, there is an oval, circumscribed echogenic lesion measuring 1.7 x 1.6 x 0.5 cm just deep to the skin surface corresponding to the patient's palpable site. 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 No other solid or cystic lesion or axillary lymphadenopathy. Overall Assessment: Benign, BI-RAD 2 Management: Screening Mammogram of both breasts in 4 months. In time for the patient's annual exam. The patient can monitor her palpable lipoma for any growth. If it becomes symptomatic, surgical excision may be considered. A clinical breast exam by your physician is recommended on an annual basis and results should be correlated with mammographic findings. This exam should not preclude additional follow-up of suspicious palpable abnormalities. Results were given to the patient verbally at the time of exam. Note on Tequila scores and lifetime risk: 1. A Tequila score greater than 3% is considered moderate risk. If this is the case, consider specialist referral to assess eligibility for a risk reducing agent. 2. If overall lifetime risk for the development of breast cancer is 20% or higher, the patient may qualify for future screening with alternating mammogram and breast MRI. Electronically signed and approved by: Bryan Anderson M.D. Radiologist
== END | disposition home or self-care (01) ==
LOC: RADMAMWWP 07:55
PROVIDERS: ATTEND Family Medicine
DX: R92.332 Mammographic heterogeneous density, left breast (principal); R92.1 Mammographic calcification found on diagnostic imaging of breast; N63.20 Unspecified lump in the left breast, unspecified quadrant; Z80.3 Family history of malignant neoplasm of breast; Z78.0 Asymptomatic menopausal state
CPT/HCPCS: 77065; 76642; G0279; 77061

== ENCOUNTER → 2024-07-30 | Outpatient (CLI) | payer MEDICARE ==
--- NOTE | 2024-07-31 15:04 | MM ---
Reason for Exam: Screening (asymptomatic). Last screening mammogram was performed 12 month(s) ago. Patient History: Menarche at age 11. First Full-Term at age 17. Postmenopausal. Estrogen for 13 years from age 39 until age 53. Progesterone for 13 years from age 39 until age 53. Hormonal Contraceptives for 10 years from age 18 until age 29. 10/06/2005, Benign Excisional Biopsy on the left side. 1992, Benign Excisional Biopsy on the right side. 1979, Benign Excisional Biopsy on the left side. Paternal cousin had breast cancer, age 50. Sister had breast cancer, age 52. Risk Values: Tequila 5 year model risk: 4.9%. NCI Lifetime model risk: 10.4%. Prior Study Comparison: 07/13/2022 Bilateral MG 3D screening mammo w/cad, [facility]. 07/27/2023 Bilateral MG 3D screening mammo w/cad, [facility]. 03/12/2024 Left MG 3D diag mammo w/cad , [facility]. Tissue Density: The breasts are heterogeneously dense, which may obscure small masses. Findings: Analyzed By CAD. There is no suspicious group of microcalcifications or new suspicious mass in either breast. Overall Assessment: Benign, BI-RAD 2 Management: Screening Mammogram of both breasts in 1 year. . Patient should continue monthly self-breast exams. A clinical breast exam by your physician is recommended on an annual basis. This exam should not preclude additional follow-up of suspicious palpable abnormalities. Note on Tequila scores and lifetime risk: 1. A Tequila score greater than 3% is considered moderate risk. If this is the case, consider specialist referral to assess eligibility for a risk reducing agent. 2. If overall lifetime risk for the development of breast cancer is 20% or higher, the patient may qualify for future screening with alternating mammogram and breast MRI. [facility], , 07/31/2024 3:01 PM. Electronically signed and approved by: Dylan Palmer M.D. Radiologis
== END | disposition home or self-care (01) ==
LOC: RADMAMWWP 13:40
PROVIDERS: ATTEND Family Medicine
DX: Z12.31 Encounter for screening mammogram for malignant neoplasm of breast (principal); Z78.0 Asymptomatic menopausal state; Z80.3 Family history of malignant neoplasm of breast; R92.333 Mammographic heterogeneous density, bilateral breasts
CPT/HCPCS: 77063; 77067